=== PATIENT | male | born 1990 ===

== ENCOUNTER 2018-05-02 13:28 | Emergency (ER) | payer OTHER ==
[2018-05-02 13:43] VITALS: BP 113/75; PULSE 99; RESP 20; TEMP 98; O2SAT 99
--- NOTE | 2018-05-02 14:23 | C.PDOC ---
History Of Present Illness Pt is here requesting detox from narcotic pain pills. Time Seen by Provider: 05/02/18 13:49 Chief Complaint (Nursing): Substance Abuse History Per: Patient Onset/Duration Of Symptoms: Days Current Symptoms Are (Timing): Still Present Suicide/Self Injury Attempted (Context): None Modifying Factor(s): Narcotics Severity: Moderate Associated Symptoms: denies: Suicidal Thoughts, Suicidal Plan Additional History Per: Prior Records Past Medical History Reviewed: Historical Data, Nursing Documentation, Vital Signs Vital Signs: Last Vital Signs Temp 98 F 05/02/18 13:40 Pulse 99 H 05/02/18 13:40 Resp 20 05/02/18 13:40 BP 113/75 05/02/18 13:40 Pulse Ox 99 05/02/18 13:40 - Medical History PMH: No Chronic Diseases Surgical History: Hernia Repair Family History: States: Unknown Family Hx - Social History Hx Tobacco Use: Yes Hx Alcohol Use: Yes (Occasional) Hx Substance Use: Yes (Opiate pills, Ecstasy) - Immunization History Hx Tetanus Toxoid Vaccination: No Hx Influenza Vaccination: No Review Of Systems Except As Marked, All Systems Reviewed And Found Negative. Constitutional: Negative for: Fever Cardiovascular: Negative for: Chest Pain Respiratory: Negative for: Shortness of Breath Gastrointestinal: Negative for: Vomiting, Abdominal Pain, Diarrhea Musculoskeletal: Negative for: Neck Pain Skin: Negative for: Rash Neurological: Negative for: Weakness, Seizures, Altered Mental Status Psych: Negative for: Psychosis Physical Exam - Physical Exam Appears: Non-toxic, No Acute Distress Skin: Normal Color, Warm, Dry Head: Atraumatic, Normacephalic Eye(s): bilateral: Normal Inspection, PERRL, EOMI Neck: Normal ROM, Supple Cardiovascular: Rhythm Regular Respiratory: Normal Breath Sounds, No Accessory Muscle Use Gastrointestinal/Abdominal: Soft, No Tenderness Extremity: Normal ROM Neurological/Psych: Oriented x3, Normal Motor, Normal Sensation ED Course And Treatment O2 Sat by Pulse Oximetry: 99 Pulse Ox Interpretation: Normal Progress Note: Pt was seen by the pole frame construction worker who d/w Dr. Manzano. They state that pt does not meet criteria for admission. Pt was given a list of outpatient programs by the pole frame construction worker. Disposition Counseled Patient/Family Regarding: Diagnosis, Need For Followup, Smoking Cessation - Disposition Referrals: [facility] [Outside] Disposition: HOME/ ROUTINE Disposition Time: 14:23 Condition: STABLE Additional Instructions: Follow up with outpatient programs as instructed by the pole frame construction worker. Return to the ER if you develop worsening of symptoms or if you have any other concerns. Instructions: Drug Abuse and Drug Addiction (DC) - Clinical Impression Clinical Impression: Opioid abuse
== END 2018-05-02 14:29 | disposition home or self-care (01) ==
LOC: C.ER 13:28
DX: F11.10 Opioid abuse, uncomplicated (principal)